=== PATIENT | female | born 1995 | race Caucasian/White ===

== ENCOUNTER 2017-07-09 13:11 | Day surgery (SDC) | payer OTHER ==
[~2017-07-09] VITALS: Ht 162.6 cm; Wt 70.0 kg
[2017-07-09] VITALS (9 sets, daily range): BP systolic 92–105; BP diastolic 53–65; PULSE 76–105; TEMP 98
[2017-07-09] MEDS ORDERED: INDERAL 10MG10 MG PO (13:45)
[2017-07-09] MEDS ORDERED: MELATONIN5 M1 SL (13:45)
[2017-07-09] MEDS ORDERED: LEXAPRO 10MG10 MG PO (13:46)
[2017-07-09] MEDS ORDERED: NUVARING VAG RING VG (13:46)
[2017-07-09] MEDS ORDERED: COLACE 100100 MG/CAP PO (15:18)
[2017-07-09] MEDS ORDERED: NORCO 325 MG-51 TAB PO (15:18)
[2017-07-09] MEDS ORDERED: MOTRIN 600600 MG/TAB PO (15:18)
== END 2017-07-09 19:30 | disposition home or self-care (01) ==
LOC: SDCO 13:11 → INPTSU 13:11 → SURG 15:52 → SDCO 19:30
DX: K35.80 Unspecified acute appendicitis (principal); E11.9 Type 2 diabetes mellitus without complications; I25.10 Atherosclerotic heart disease of native coronary artery without angina pectoris; K21.9 Gastro-esophageal reflux disease without esophagitis; F32.9 Major depressive disorder, single episode, unspecified; F41.9 Anxiety disorder, unspecified; D64.9 Anemia, unspecified; G43.909 Migraine, unspecified, not intractable, without status migrainosus
CPT/HCPCS: OP; J0330; J1100; J1885; J2175; J2250; J2405; J2550; J2704; J3010; J7120

== ENCOUNTER 2017-07-14 07:23 | Observation (INO) | payer OTHER ==
[~2017-07-14] VITALS: Ht 162.6 cm; Wt 59.6 kg
[~2017-07-14 07:23] MED LIST: COLACE 100100 MG/CAP PO; INDERAL 10MG10 MG PO; LEXAPRO 10MG10 MG PO; MELATONIN5 M1 SL; MOTRIN 600600 MG/TAB PO; NORCO 325 MG-51 TAB PO; NUVARING VAG RING VG
[2017-07-14 08:13] VITALS: BP 104/67; PULSE 82; TEMP 98
[2017-07-14] MEDS ORDERED: GAS-X ULTRA ST180 MG PO (10:47)
[2017-07-14 13:16] VITALS: BP 111/73; PULSE 81; TEMP 98.2
[2017-07-14 17:23] VITALS: BP 97/53; PULSE 75; TEMP 98
[2017-07-14 22:55] VITALS: BP 111/68; PULSE 83; TEMP 98.5
[2017-07-15 06:14] LABS: BASO % 0.4 % (0.0-2.0); EOS # 0.1 (0.0-0.7); EOS % 2.5 % (0-4.0); GRAN # 3.1 (1.4-6.5); GRAN % 63.5 % (42.2-75.2); LYMPH # 1.3 (1.2-3.4); LYMPH % 27.6 % (20.0-51.0); MEAN CELL VOLUME 86 fl (80.0-95.0); MEAN CORPUSCULAR HGB CONC 34 g/dl (33.0-37.0); MEAN PLATELET VOLUME 9.8 fl (7.4-10.4); MONO # 0.3 (0.1-0.6); MONO % 5.8 % (1.7-9.3); PLATELET COUNT 199 K/mm3 (130-400); RED BLOOD COUNT 4.02 M/mm3 (4.10-5.30); WHITE BLOOD COUNT 4.9 K/mm3 (4.8-10.8)
[2017-07-15 06:16] LABS: HEMATOCRIT 34.7 % (35.0-45.0); HEMOGLOBIN 11.8 g/dl (12.0-15.0); MEAN CORPUSCULAR HEMOGLOBIN 29 pg (26.0-32.0)
[2017-07-15 06:28] VITALS: BP 109/58; PULSE 65; TEMP 98.1
[2017-07-15 06:30] LABS: ALBUMIN 3.5 gm/dL (3.5-5.0); CALCIUM 8.5 mg/dL (8.4-10.2); CREATININE, serum 0.7 mg/dL (0.52-1.25); PHOSPHOROUS 3.8 mg/dL (2.5-4.5); POTASSIUM 4.3 mmol/L (3.4-5.0)
[2017-07-15 09:28] VITALS: BP 113/60; PULSE 89; TEMP 98.3
[2017-07-15 13:50] VITALS: BP 115/66; PULSE 81; TEMP 98.1
[2017-07-15 17:34] VITALS: BP 112/55; PULSE 55; TEMP 98.2
[2017-07-15] MEDS ORDERED: PERCOCET 325 MG1 TA2 PO (18:33)
[2017-07-15] MEDS ORDERED: ZOFRAN ODT4 MG PO (18:33)
== END 2017-07-15 19:00 | disposition home or self-care (01) ==
LOC: SURG 07:23
PROVIDERS: Surgery
DX: R10.31 Right lower quadrant pain (principal); Z83.3 Family history of diabetes mellitus; Z82.49 Family history of ischemic heart disease and other diseases of the circulatory system
CPT/HCPCS: C9113; G0378; G0379; J1170; J1885; J2405; J7030